=== PATIENT | male | born 1950 | race Caucasian/White ===

== ENCOUNTER 2022-02-05 08:37 | Outpatient (CLI) | payer MEDICARE, SELFPAY ==
--- NOTE | 2022-02-05 11:00 | NEURO_ITS ---
Impression: # Complains of left foot pain. # Left peroneal neuropathy. # Needle/EMG exam neurogenic in left Anterior Tibialis and Ext Dig Brev. # Clinical correlation recommended. Nerve Conduction Studies Anti Sensory Summary Table Stim Site NR Peak (ms) P-T Amp (?V) Site1 Site2 Delta-P (ms) Dist (cm) Eric (m/s) Left Sup Fibular Anti Sensory (Ant Lat Mall) 14 cm 4.3 22.6 14 cm Ant Lat Mall 4.3 16.0 37 Left Sural Anti Sensory (Lat Mall) Calf 4.3 23.2 Calf Lat Mall 4.3 16.0 37 Motor Summary Table Stim Site NR Onset (ms) O-P Amp (mV) Site1 Site2 Delta-0 (ms) Dist (cm) Eric (m/s) Left Peroneal Motor (Vastus Med) Ankle 4.8 0.9 Popit Ankle 12.9 43.0 33 Popit 17.7 0.5 Left Tibial Motor (Abd Rico Brev) Ankle 5.1 1.9 Knee Ankle 10.4 46.0 44 Knee 15.5 2.3 F Wave Studies NR F-Lat (ms) L-R F-Lat (ms) Left Peroneal (Mrkrs) (EDB) 58.86 Left Tibial (Mrkrs) (Abd Hallucis) 59.89 EMG Side Muscle Nerve Root Ins Act Fibs Amp Dur Recrt Comment Left AntTibialis Dp Br Fibular L4-5 Nml Nml Nml >12ms Reduced Left Gastroc Tibial S1-2 Nml Nml Nml Nml Nml Left Fibularis Long Sup Br Fibular L5-S1 Nml Nml Nml Nml Nml Left Flex Dig Long Tibial L5-S2 Nml Nml Nml Nml Nml Left Ext Dig Brev Dp Br Fibular L5, S1 Nml Nml Nml >12ms Reduced Left QuadratusFem QuadFemoris L4-5, S1 Nml Nml Nml Nml Nml MTDD
== END 2022-02-05 08:38 | disposition home or self-care (01) ==
LOC: ANHNEURO 08:42
PROVIDERS: Visit Provider Physician Assistant Surgical
DX: G57.32 Lesion of lateral popliteal nerve, left lower limb (principal); M25.572 Pain in left ankle and joints of left foot
CPT/HCPCS: 95886; 95908

== ENCOUNTER 2024-08-07 11:56 | Outpatient (CLI) | payer MEDICARE, SELFPAY ==
--- NOTE | ~2024-08-07 | XR_ITS ---
XR knee RT 3V Ordering provider: John Watts MD History: . No injury lateral side right knee pain for 6 weeks . Comparison: None. FINDINGS: BONES: No acute fracture or dislocation. JOINT SPACES: Narrowing of the lateral compartment. SOFT TISSUES: Atherosclerotic changes of the vessels. IMPRESSION: No acute osseous abnormality right knee. Severe osteoarthritic changes. Reviewed, dictated and finalized at location A. CLEANER
== END 2024-08-07 11:57 | disposition home or self-care (01) ==
PROVIDERS: PCP Student in an Organized Health Care Education/Training Program; Visit Provider Orthopaedic Surgery
DX: M25.561 Pain in right knee (principal)
CPT/HCPCS: 73562

== ENCOUNTER 2024-09-28 18:47 | Emergency (ER) | payer MEDICARE, SELFPAY ==
[2024-09-28 19:50] VITALS: BP 177/81; PULSE 56; RESP 20; TEMP 36.9; O2SAT 100
--- NOTE | 2024-09-28 19:59 | PC.NURSE ---
1956-AFTER TRIAGE, PATIENT STATES THERE ARE PEOPLE HERE SICKER THAN ME. PATIENT ELECTS TO LEAVE AND FOLLOW UP WITH PRIMARY AND ORTHOPEDIST. PATIENT ENCOURAGED TO STAY BUT DECLINES. PATIENT LEFT WITHOUT SEEING ANY PROVIDER.
== END 2024-09-28 21:15 | disposition left against medical advice (07) ==
LOC: ANHED 20:27
PROVIDERS: PCP Student in an Organized Health Care Education/Training Program
DX: M25.512 Pain in left shoulder (principal)
CPT/HCPCS: 99199

== ENCOUNTER 2025-08-01 14:22 | Outpatient (CLI) | payer MEDICARE, SELFPAY ==
--- NOTE | ~2025-08-01 | US_ITS ---
EXAMINATION: US carotid duplex BI DATE: 08/01/2025 15:07 INDICATION: Carotid atherosclerosis. Hollenhorst plaque TECHNIQUE: Grayscale, color Doppler, and pulsed Doppler images of the cervical carotid arteries were obtained. The degree of vessel stenosis is placed in one of the following categories: normal, <50%, 50-69%, >=70% but less than near- occlusion, near-occlusion, or total occlusion. Note that percent stenosis relative to normal distal artery lumen diameter is indirectly measured from velocity measurements as described by Perry, et al. Radiology 2003; 229:340-346. Notes: Normal: Peak systolic velocity <125 centimeters/sec and no plaque <50%. Peak systolic velocity <125 (EDV <40; ICA/CCA PSV ratio <2.0; used these factors only a tandem lesions or low cardiac output or contralateral disease) 50-69 %: PSV 125-230 (EDV 40-100; ratio 2-4) >= 70% but less than near occlusion: PSV greater than 230 (EDV > 100; ratio> 4.0) Near Occlusion: PSV that is variable; markedly narrowed lumen Occlusion: Absent flow on color/spectral Doppler and no lumen on nolasco scale. COMPARISON: None. FINDINGS: RIGHT: The right common carotid artery (CCA) peak systolic velocity (PSV) is 132 cm/s. The right internal carotid artery (ICA) PSV is 203 cm/s. The right ICA end- diastolic velocity (EDV) is 32 cm/s. The right ICA/CCA PSV ratio is 1.6. The external carotid artery (ECA) PSV is 85 cm/s. There is antegrade flow in the right vertebral artery. LEFT: The left CCA PSV is 114 cm/s. The left ICA PSV is 87 cm/s. The left ICA EDV is 21 cm/s. The left ICA/CCA PSV ratio is 0.8. The ECA PSV is 65 cm/s. There is antegrade flow in the left vertebral artery. IMPRESSION: 1. 50-69% stenosis in the right internal carotid artery by sonographic criteria. 2. Less than 50% stenosis in the left internal carotid artery by sonographic criteria. Reviewed, dictated and finalized at location O. AL ACCOUNTANT IMPRESSION: 1. 50-69% stenosis in the right internal carotid artery by sonographic criteria . 2. Less than 50% stenosis in the left internal carotid artery by sonographic cr iteria.
--- OUTSIDE RECORDS SUMMARY | 2025-08-02 14:07 | XMS_ITS | Clinical Summary ---
Author Organization [facility] Address [address] [place] [address] Care Team Providers Care Outside Upholsterer Name Role Phone Travis Law Primary Care Provider + Jami Watts MD Unavailable Allergies No known active allergies Medications simvastatin (ZOCOR) 20 MG tabletIndicatio ns:Dyslipidemia Take 1 tablet (20 mg total) by mouth daily. 90 tablet 3 08/30/20 24 Active amoxicillin (AMOXIL) 500 MG tablet TAKE 4 TABLETS BY MOUTH 1 HOUR BEFORE APPOINTMENT 02/03/20 25 Active multi vitamin/mineral s (THERA-M ENHANCED) tablet Take 1 tablet by mouth daily. Active Vitamin D-Vitamin K (K2 PLUS D3 OR) Active Ibuprofen-Aceta minophen (ADVIL DUAL ACTION OR) Acti ve omeprazole (PRILOSEC) 40 MG capsuleIndicati ons:Gastroesoph ageal reflux disease without esophagitis TAKE 1 CAPSULE(40 MG) BY MOUTH DAILY 90 capsule 1 07/06/20 25 Active omeprazole (PRILOSEC) 40 MG capsuleIndicati ons:Gastroesoph ageal reflux disease without esophagitis Take 1 capsule (40 mg total) by mouth daily. 90 capsule 1 01/10/20 25 025 Discontinued Active Problems Problem Noted Date Diagnosed Date Rotator cuff arthropathy of right shoulder 04/24 Globus sensation 03/06/2025 Gastroesophageal reflux dise ase, unspecified whether esophagitis present 03/06/2025 Pharyngoesophageal dysphagia 03/06/2025 Localized osteoarthritis of right knee Rotator cuff tear arthropathy of left shoulder 0 12/28/2023 Essential hypertension 10/04/2023 Fatigue 08/29/2018 Dyslipidemia 09/10/2014 Sprain of shoulder joint 03/29/2014 Erectile dysfunction of nonorganic origin 2012 Diverticulitis of colon 09/14/2013 Gastroesophageal reflux disease without esophagi tis 09/14/2013 Encounters Date Type Department Care Team Description 07/25/2025 Telephone [facility] Family & Internal Medicine [address] [id number] Travis Law, DO Information 07/18/2025 Results Follow-Up [facility] [place] - [address], [address] [place] [address] Jami Benitez MD Pathology 07/12/2025 9:07 AM CDT Anesthesia Event [facility] [place] [address] Karthikeyan Adams MD 07/12/2025 8:49 AM CDT - 07/12/2025 9:19 AM CDT Surgery [facility] [place] [address] Jami Benitez MD EGD WITH REMOVAL OF GASTRIC POLYPS VIA COLD SNARE TECH, BALLOON DILATION VIA CRE 15MM TO 18MM, DILATION WITH 54FR BORJA 07/12/2025 8:20 AM CDT - 07/12/2025 10:15 AM CDT Hospital Encounter [facility] [place] [address] Jami Benitez MD Discharge Disposition: Home or Self Care (Routine Discharge) 07/12/2025 Travel 06/04/2025 [facility] [place] - [address] [place] [address] Jami Benitez MD Prior Authorization (EGD 91582, [id number], 79434, [id number], [address]86) from Last 3 Months Immunizations Immunization Administration Dates Next Due Arexvy Respiratory Syncytial Virus (RSV, adjuvanted) 0.5 mL, PF 11/21/2024 Fluzone High Dose (IIV, triv alent, 0.5mL) 06/27/2024 Fluzone High Dose - >Age 65 (Prefilled Syringe) 06/27/2024,07/07/2023,06/18/2022,2019 Fluzone Intradermal Quad (IIV4) 08/07/2019 Influenza (Generic) 08/30/2017, 6,06/27/2015,2013,09/21/2013 Influenza Adult (Generic) 07/07/2023,09/2020,08/07/2019,2017 PFIZER COVID-19 (12+) MRNA, LNP-S, PF, ELMO-SUCROSE, 30 MCG/0.3 ML (COMIRNATY) 01/09/2025 Pneumococcal (Pneumovax 23) 08/28/2019 Pneumococcal (Prevnar 13) 2016 Tdap (Generic) 09/14/2012 Family History Medical History Relation Comments CAD Father Relation Status Comments Father Mother Social History Tobacco Use Types Packs/Day Years Used Date Smoking Tobacco: Never Passive Smoke Exposure: Past Smokeless Tobacco: Never Tobacco Cessation:Counseling Given: No Alcohol Use Standard Drinks/Week Comments Not Currently 0 (1 standard drink = 0.6 oz pur e alcohol) very seldom AUDIT-C Answer Date Recorded Q1: How often do you have a drink containing alcohol? Monthly or less 09/06/2024 Q2: How many drinks containi ng alcohol do you have on a typical day when you are drinking? Patient does not drink Q3: How often do you have si x or more drinks on one occasion? Never 09/06/2024 PHQ-2 Answer Date Recorded Patient Health Questionnaire-2 Score 0 04/24/2025 Sex and Gender Information Value Date Recorded Sex Assigned at Male 01/09/2025 9:51 AM CDT Legal Sex Male 4:17 PM CDT Gender Identity Male 01/09/2025 9:51 AM CDT Sexual Orientation Not on file Last Filed Vital Signs Vital Sign Reading Time Taken Comments Blood Pressure 141/97 07/12/2025 9:50 AM CDT Pulse 55 07/12/2025 9:50 AM CDT Temperature 36.2 C (97.1 F) 07/12/2025 9:28 AM CDT Respiratory Rate 17 07/12/2025 9:50 AM CDT Oxygen Saturation 98% 07/12/2025 9:50 AM CDT Inhaled Oxygen Concentration - - Weight 86.2 kg (190 lb) 06/29/2025 9:27 AM CDT Height 179.1 cm (5' 10.5) 06/29/2025 9:27 AM CD T Body Mass Index 26.88 06/29/2025 9:27 AM CDT Plan of Treatment Upcoming Encounters Date Type Department Care Team (Late st Contact Info) Description 08/03/2025 11:00 AM ASSISTANT PRESSMAN [facility] [address] [place] [address] Afua Obregon MD [facility] [address] [place] [address] 01/10/2026 9:40 AM CDT Office Visit [facility] Family & Internal Medicine [facility] [address] [place] [phone] Travis Law DO [address] [place] [address] Health Maintenance Due Date Last Done Comments COVID-19 Vaccine ( season) 2025 01/09/2025, 06/27/2024, 07/07/2023, Additional history exists Influenza Adult (#1) 2025 06/27/2024, 06/27/2024, 07/07/2023, Additional history exists Annual Medicare Wellness Visit 09/07/2025 09/06/2024 DTaP, Tdap and Td Vaccines (2 - Td or Tdap) 01/09/2026 09/14/2012 Postponed from 09/14/2022 (No Insurance Coverage) Zoster Vaccines (1 of 2) 01/09/2026 Pos tponed from 2000 (Going to Outside Clinic) Colorectal Cancer Screening Colonoscopy (10 Years) 10/17/2026 10/17/2021, 09/27/2009 Pneumococcal Vaccine: 50+ Years Completed 08/28/2019, 2016 Hepatitis C Completed 12/28/2023 RSV Immunization or 60+ Years Completed 11/21/2024 PHQ-2 (Physician Leroy) Completed 04/24/2025 Hepatitis A Vaccines Aged Out No long er eligible based on patient's age to complete this topic Meningococcal B Vaccine Aged Out No l onger eligible based on patient's age to complete this topic Meningococcal Vaccine Aged Out No yolanda susana eligible based on patient's age to complete this topic RSV Immunizations Under 20 Months Aged Out No longer eligible based on patient's age to complete this topic Procedures Procedure Name Priority Date/Time Associated Diagnosis Comments UP GI ENDOSCOPY,REMV TUMOR,SNARE 07/12/2025 9:07 AM CDT Globus sensation Gastroesophageal reflux disease, unspecified whether esophagitis present Pharyngoesophageal dysphagia PATHOLOGY Routine 07/12/2025 12:00 AM CDT HEPATITIS C ANTIBODY Routine 12/28/2023 8:33 AM CDT Essential hypertension Dyslipidemia Annual physical exam Need for hepatitis C screening test COLONOSCOPY GENERIC (SCAN ORDER) Routine 10/17/2021 from Last 3 Months or Most Recently Relevant to Health Maintenance Results * Pathology (07/12/2025 12:00 AM CDT) PATHOLOGY [facility] Department of Laboratory Medicine [address] [place] [id number] , extension [phone] Pathology Report Surgical Pathology Report Name: JAY WORTHY RAY Specimen #: [id number] Age: 12 1950 (Age: 74) Location: [facility] Sex: M Procedure Date: 07/12/2025 Hospital #: [id number] Date Received: 07/12/2025 Date Reported: 07/13/2025 Provider: JAMI BENITEZ MD Source: Gastric polyp Clinical History: Dysphagia, globus sensation/chroni c GERD FINAL DIAGNOSIS: Stomach, polyps, biopsy: - Fragments of fundic gland polyp. Gross Description: Received in formalin, labeled with a patient label and as gastric polyps, are 2 portions of white-perez soft tissue that are 0.4 and 0.5 cm in greatest dimension. 1 polyp is inked black and bisected. The specimen is entirely submitted in cassette 1. Gross examination (when applicable), interpretation, and sign out were performed at [facility], [address] [place] [address]. Electronically Signed Out NOHEMY BLANCO MD [facility] TISSUE GASTRIC BIOPSY SPECIMEN / Unknown 07/12/2025 9:16 AM CDT Jami Benitez MD PATHOLOGY/CYTOLOGY ORDERABLES Fi nal Result Performing Organization Address [facility] Co de Phone Number [facility] [address] [place] [address], [phone] * HEPATITIS C ANTIBODY (12/28/2023 8:33 AM CDT) HEPATITIS C AB NON-REACTI VE NON-REACT COLT 12/28/2023 7:46 PM CDT [facility] Comment: ANTIBODIES TO HCV NOT DETECTED. DOES NOT EXCLUDE THE POSSIBILITY OF EXPOSURE TO HCV. 12/28/2023 8:33 AM CDT Travis Law DO LABORATORY Final Re sult Performing Organization Address [facility] Co de Phone Number [facility] [address] [place] [address], [phone] * COLONOSCOPY (10/17/2021) us Documents Scanned SCANNING Final Result [facility] from Last 3 Months or Most Recently Relevant to Health Maintenance Insurance MED REPLACE [facility] MEDICARE MED REPLACE [facility] MEDICARE Care Teams Outside Upholsterer Relationship Specialty Start Date End Date Travis Law DO [address] [place] [address] PCP - General 12/26/23 Jami Watts MD [address] [place] [id number] ORTHOPAEDIC SURGERY 09/04/24
--- OUTSIDE RECORDS SUMMARY | 2025-08-02 14:07 | XMS_ITS | Encounter Summary ---
Author Organization [facility] Address [address] [place] [address] Care Team Providers Care Can Piler Name Role Phone Charlie Blount MD Primary Care Provider [phone] Travis Law DO Primary Care Provider + John Watts MD Unavailable [phone] Encounter Details Date Type Department Care Team (Latest Contact Info) Description 08/02/2018 Abstract [facility] Zackary Rincon MD Social History Tobacco Use Types Packs/Day Years Used Date Smoking Tobacco: Never Assessed Sex and Gender Information Value Date Recorded Sex Assigned at Male 01/09/2025 9:51 AM CDT Legal Sex Male 4:17 PM CDT Gender Identity Male 01/09/2025 9:51 AM CDT Sexual Orientation Not on file documented as of this encounter Plan of Treatment Upcoming Encounters Date Type Department Care Team (Late st Contact Info) Description 08/03/2025 11:00 AM PUNCHER [facility] [address] [place] [address] Afua Obregon MD [facility] [address] [place] [address] 01/10/2026 9:40 AM CDT Office Visit [facility] Family & Internal Medicine [address] [place] [address] Travis Law DO [address] [place] [address] documented as of this encounter Visit Diagnoses Not on filedocumented in this encounter Care Teams Can Piler Relationship Specialty Start Date End Date Charlie Blount MD [address] [id number] PCP - General 09/02/15 12/25/23 Travis Law DO [address] [place] [address] PCP - General 12/26/23 John Watts MD [address] [place] [phone] ORTHOPAEDIC SURGERY 09/04/24 documented as of this encounter
== END 2025-08-01 14:23 | disposition home or self-care (01) ==
PROVIDERS: PCP Student in an Organized Health Care Education/Training Program
DX: I65.23 Occlusion and stenosis of bilateral carotid arteries (principal); H34.211 Partial retinal artery occlusion, right eye
CPT/HCPCS: 93880